=== PATIENT | female | born 1950 | race Caucasian/White ===

== ENCOUNTER 2025-08-03 08:04 | Observation (INO) ==
--- NOTE | 2025-08-02 08:46 | History & Physical Report ---
Date of Service August 02, 2025 Assessment & Plan (1) Occlusion of left iliac artery: Plan: Patient is admitted for arteriography with possible intervention. I have discussed the risks options and benefits of the procedure with the patient. The patient understands the risks options and benefits and agrees to the procedure. History of Present Illness Chief Complaint: Left iliac artery occlusion Primary Care Provider: Florence De Leon MD I had the pleasure of seeing Kari today for follow-up. As you may remember, patient underwent an aortogram with left iliac artery FORMSTONE FITTER and stenting in January 2025 due to severe left lower extremity claudication symptoms. Patient states that she did well for some time after treatment, but eventually ended up with the same symptoms that she had been experiencing prior to her procedure. She states at this point her left hip and buttock and thigh becomes severely painful after walking 20 to 30 yards. She states that this has been very bothersome this summer as they recently went to [place]. She states that she had a significant amount of trouble getting around the park. She is able to walk again after resting for about 5 minutes. She has no rest pain, nonhealing wounds or ulcers, discoloration of the feet or toes, numbness or tingling of the feet. She underwent her CT angiography which showed the left iliac stent to be occluded. She also has mild stenosis of the right common iliac artery. She does have significant claudication of the left lower extremity. Allergies Allergy/AdvReac Type Severity Reaction Status Date / Time No Known Allergies Allergy Mild OTHER Verified 07/10/25 11:02 Home Medications Medication Instructions Recorded Confirmed Type Ventolin HFA 90 mcg/actuation 2 puff inhalation .COMPLEX PRN 10/18/24 07/10/25 Rx aerosol inhaler (albuterol sulfate) shortness of breath or wheezing #18 grams albuterol sulfate 2.5 mg/3 mL 2.5 mg (3 mL) inhalation Q4H PRN 10/20/24 07/10/25 Rx (0.083 %) solution for nebulization shortness of breath or wheezing #75 mL aspirin 81 mg tablet,delayed 81 mg PO DAILY 01/03/25 07/10/25 History release clopidogrel 75 mg tablet (Plavix) 75 mg PO DAILY #30 tabs 02/16/25 07/10/25 Rx peg 3350-sod sulf,[id number] See Rx Instructions PO .COMPLEX #2 03/30/25 07/10/25 Rx 178.7-7.3-0.5-1.12-0.9 gram oral mL soln (Suflave) atorvastatin 40 mg tablet 40 mg PO QAM #90 tabs 06/12/25 07/10/25 Rx pantoprazole 40 mg tablet,delayed 40 mg PO BID #60 tabs 07/16/25 Rx release Past Med/Surg History Problem List (Updated 08/02/25 @ 08:45 by Nick Corado MD) Occlusion of left iliac artery Sciatica, left side Hyperlipidemia History of hip surgery Operation Date: 11/04/23 08:15 Actual Procedures p Left Hip: Revision Endoscopic Bursectomy, Open Gluteus Medius Repair, Bioinductive Scaffold(Left) - Blu Samuel MD Greater trochanteric pain syndrome of left lower extremity Lumbar radiculopathy Spondylolisthesis at L5-S1 level Tear of gluteus medius tendon Greater trochanteric bursitis of left hip Subacromial impingement of right shoulder Asthma (Chronic) Medical History COPD (chronic obstructive pulmonary disease) mild. Smoker History of COVID-19 January or march 2022, no symptoms Asthma well controlled, inh prn , last use summer 2022. Surgical History History of hip surgery left, Oct 01 2022. History of cataract surgery bilat History of colonoscopy History of kidney surgery Nephrophexy for floating kidney S/P foot surgery bilat H/O section x1 Family History Mother Colon cancer Colorectal cancer Father Lung cancer Denies family history of Ovarian cancer Prostate cancer Bipolar disorder Myocardial infarction Breast cancer Social History Smoking Status: Former smoker Tobacco Type: Cigarettes Age Started Using Tobacco: 17; Age Quit Using Tobacco: 74; packs per day: 0.5; Cigarettes Per Day: 10-12 cigs per day; Second Hand Exposure: No; Do You Dip or Chew Tobacco: No; Hx Alcohol Use: Yes Alcohol type: beer Alcohol Intake Frequency: 2-4 x/Month Hx Substance Use: No Preferred Language: French Communication Ability: Effective Visual Impairment: No Limitations Hearing Ability: Normal Tube Splicer Required: No Beliefs That Will Affect Care: None marital status: Current Living Situation: Spouse current occupational status: retired 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 She is alert and oriented without focal deficits. Her heart is regular, her lungs are decreased but clear. Her abdomen is soft and with mild tenderness across the upper portion of her abdomen. Her left femoral pulse is nonpalpable. Her right is +3. Her lower extremity distal pulses are +2 on the right, and +1 DP on the left nonpalpable PT on the left. She has brisk capillary fill and no sign of distal ischemia. There is no edema
[2025-08-03] MEDS: SODIUM CHLORIDE 0.9% 1,000 ML IV SCH ×2 (08:20→18:03)
[2025-08-03 08:36] LABS: Blood Urea Nitrogen 18.0 mg/dl (6-23); Creatinine Clr Calc Pharmacy 37.7 ml/min
--- NOTE | 2025-08-03 09:03 | History & Physical Bridge Note ---
Date of Service August 03, 2025 History & Physical Bridge Note I have examined the patient, reviewed the History & Physical and in the interval since the performance of the History & Physical I have noted the following changes of clinical significance: no changes noted
[2025-08-03] MEDS: CEFAZOLIN 2,000 MG/15 ML SYR IV SCH (09:48)
--- NOTE | 2025-08-03 10:19 | Pre Anesthesia Assessment ---
Date of Service August 03, 2025 Pre Sedation Assessment Vital Signs Temp Pulse Pulse Resp BP Pulse Ox O2 Del Method 08/03/25 10:08 48 L 16 146/57 H 100 Oxymask 08/03/25 08:33 Room Air 08/03/25 08:33 36.7 C 52 L 20 128/67 99 Room Air O2 Flow Rate 08/03/25 10:08 4 08/03/25 08:33 08/03/25 08:33 Cardiovascular RRR, no murmur, no edema Respiratory normal respiratory effort, lungs clear to auscultation Pre-Sedation Airway Assessment Smoking Status: Former smoker Hx Sleep Apnea: No Short, Thick Neck: No Thyromental Distance: < 3.5 Finger Breadths Oral Cavity: + WNL Mallampati Class: III ASA: ASA3 NPO Status Date of Last Intake of Fluids: 08/02/25 Time of Last Intake of Fluids: 23:00 Date of Last Intake of Solid Food: 08/02/25 Time of Last Intake of Solid Foods: 23:00 Procedure Planning Contraindications for Sedation: none Current Medications Reviewed: Yes Notes The planned sedation has been discussed with the patient. Informed Consent was obtained. I have identified the patient, determined the appropriateness of sedation and have assessed the patient immediately prior to the procedure. All medicine(s) and interventions are by my order.
[2025-08-03] MEDS: MIDAZOLAM HCL 1 MG/ML 2ML VIAL ONE ×2 (10:20→11:25)
[2025-08-03] MEDS: LIDOCAINE 1% LOCAL 20 ML VIAL ONE (11:25)
[2025-08-03] MEDS: VISIPAQUE IV PRN (11:26)
--- NOTE | 2025-08-03 11:37 | Procedure Note ---
Angiogram Post Procedure Fluoroscopy Time (minutes): 17.7 Conscious Sedation Time (minutes): 87 Radiation (mGy): 310 Contrast: 120 Post Operative Report Pre & Post Diagnosis Operation Date: 08/03/25 10:20 Pre-Op Diagnosis: Aortoiliac Occlusive Disease Post-Op Diagnosis: Aortoiliac Occlusive Disease I identified the patient and participated in the time-out.: Yes Procedure Operation Date: 08/03/25 10:20 Actual Procedures p Aortogram, Percutaneous Transluminal Angioplasty with Stenting of the Right Common Iliac Artery, Left Common Iliac Artery and Left External Iliac; Moderate Sedation [id number](Left) - Nick Corado MD Surgeon Nick Corado MD Structural Steel Fitter none Estimated Blood Loss 20 Findings Consistent with Post-Op Diagnosis Specimens none Complications none Disposition Accompanied Patient To Recovery: No Disposition: Recovery Room Indications This is a 75-year-old female who had a left common iliac stenting done in January of this year. Subsequent to that she has developed recurrent claudication. She was seen in the office for follow-up and found to have an occluded left common and external iliac artery. Arteriography with possible invention was recommended. I have discussed the risks options and benefits of the procedure with the patient. The patient understands the risks options and benefits and agrees to the procedure. Description of Procedure Patient was taken to the angiogram suite and placed supine position. After the groins were prepped and draped in a sterile manner patient was identified a timeout was performed. The right common iliac artery was identified using ultrasound. Local anesthetic was then administered. Using ultrasound the right common femoral artery was punctured. 5 Israeli sheath was inserted. 035 wire was passed up into the aorta followed by a pigtail. Aortography was performed which showed a stenosis in the right common iliac artery just beyond its origin and an occluded left common and external iliac artery with reconstitution of the common femoral artery right at 4 slightly above the inguinal ligament. At that point we exchanged the pigtail catheter to a rim catheter. Using a rim catheter we were able to cannulate the occluded stent down to the distal end. We then exchanged the wire to stiff and Glidewire and inserted a 6 Israeli destination which passed into the proximal portion of the old stent. Using a 035 wire and a quick cross we then were able to pass through the external iliac into the common femoral artery. The wire was removed and position was confirmed that the quick cross was true lumen of the common femoral artery. We then reinserted a 035 stiff and a wire. We then used a 6 x 120 balloon to dilate the external iliac artery. When the balloon was removed we did injected contrast which showed extravasation of contrast in the distal third of the external iliac artery. We then exchanged the destination to a 7 Israeli sheath and exchanged the 035 wire to an 018 wire. We then inserted an 8 x 5 Viabahn and deployed it from the inguinal ligament upward. We then deployed an 8 x 2.5 Viabahn just above and the proximal external iliac just below the level of the old stent. Angiogram done at that time showed no further extravasation. We then exchanged the wire for an 035 wire and exchanged to a 7 Israeli destination to an 8 Israeli destination. We then placed an 8 x 59 VBX in the old stent landing slightly higher on the common iliac artery origin. Angiogram done at that time showed good flow and no extravasation. There was no abnormalities questionable plaque in the common femoral artery proximally. We then inserted a 5 x 40 balloon and inflated the balloon at that area and held inflation for 2 minutes. After balloon was removed intact showed no further flap noted. We then pulled our sheath back to the right side. We used an 8 x 39 VBX stent deployed in the common iliac artery just beyond its origin. There is no residual stenosis noted at that time however at the proximal portion had a significant narrowing and appeared to be slightly kinked due to the presence of the stent in the opposite iliac. We therefore put an 8 x 29 VBX and deployed it right to the origin of the iliac on the right side. Hand-injection was then performed which showed widely patent common iliac arteries and external iliac arteries on both sides and good flow into both common femoral arteries. No extravasation of contrast was noted at that time. The destination sheath was then pulled and pressure was applied. Sterile dressings were applied to the wound.The patient left the operation room in satisfactory condition and tolerated the procedure well. All needle and sponge counts were correct at the end of the procedure. I attest to the content of the Intraoperative Record and any orders documented therein. Any exceptions are noted below.
--- NOTE | 2025-08-03 11:49 | Post Anesthesia Assessment ---
Date of Service August 03, 2025 Post Sedation Assessment Vital Signs Temp Pulse Pulse Resp BP Pulse Ox O2 Del Method 08/03/25 11:42 49 L 16 137/73 98 Room Air 08/03/25 11:37 55 L 16 110/62 95 Room Air 08/03/25 11:35 52 L 16 88/66 L 95 Oxymask 08/03/25 11:30 55 L 16 133/76 97 Oxymask 08/03/25 11:25 63 16 125/71 99 Oxymask 08/03/25 11:20 59 L 16 129/77 100 Oxymask 08/03/25 11:15 60 16 129/79 98 Oxymask 08/03/25 11:10 58 L 16 139/78 98 Oxymask 08/03/25 11:05 69 16 107/72 98 Oxymask 08/03/25 11:00 70 16 127/77 98 Oxymask 08/03/25 10:55 77 16 120/76 99 Oxymask 08/03/25 10:50 77 16 88/66 L 99 Oxymask 08/03/25 10:45 82 16 120/92 99 Oxymask 08/03/25 10:40 58 L 16 124/66 97 Oxymask 08/03/25 10:35 62 16 118/68 95 Oxymask 08/03/25 10:30 61 16 98/59 L 98 Oxymask 08/03/25 10:25 57 L 16 120/65 99 Oxymask 08/03/25 10:20 56 L 16 132/69 99 Oxymask 08/03/25 10:08 48 L 16 146/57 H 100 Oxymask 08/03/25 08:33 Room Air 08/03/25 08:33 36.7 C 52 L 20 128/67 99 Room Air O2 Flow Rate 08/03/25 11:42 0 08/03/25 11:37 0 08/03/25 11:35 4 08/03/25 11:30 4 08/03/25 11:25 4 08/03/25 11:20 4 08/03/25 11:15 4 08/03/25 11:10 4 08/03/25 11:05 4 08/03/25 11:00 4 08/03/25 10:55 4 08/03/25 10:50 4 08/03/25 10:45 4 08/03/25 10:40 4 08/03/25 10:35 4 08/03/25 10:30 4 08/03/25 10:25 4 08/03/25 10:20 4 08/03/25 10:08 4 08/03/25 08:33 08/03/25 08:33 Recovery Score Activity: Moves 4 extremities Respiration: Deep Breath/Cough Circulation: +/-20% PreAnes Value Consciousness: Fully Awake Oxygen Saturation: > 92% On Room Air Post Anesthesia Score: 10 Discharge Sedation Level of Care: Fast Track Phase II Post Sedation Plan On clinical assessment, the patient appears to have tolerated the sedation without complications. Patient is recovering as anticipated. Patient will continue to be monitored by nursing and may be discharged when sedation discharge criteria are met per below protocol. Upon Completions of procedure up to 15 minutes continue every 5 minute vital signs and the P.A.R. score; then discharge to a Phase I or Fast Track to Phase II per the following guidelines: * Discharge Patient to appropriate Phase II area if PAR is 8 or greater or return to pre- procedure baseline. The post - procedure orders will be as directed. * If PAR score is less than 8 or not return to pre-procedure baseline then patient will follow Phase I monitoring till PAR is reached for Phase II. The Phase I may be done in procedure room or may call to secure a Phase I area. * If naloxone or flumazenil are used for reversal, hold in Phase I for continued monitoring from when last reversal dose was given for a minimum of 60 minutes or longer pending the nurse and/or physician discretion of patient condition before discharge to Phase II. Please call the Sedation Physician to re-evaluate and complete post-note for discharge to Phase II area. Do NOT discharge from procedure sedation or Phase 1 until post- sedation evaluation note is complete by procedure /sedation MD Sedation Discharge Instructions to be given to the patient at discharge to home.
[2025-08-03] MEDS: ONDANSETRON INJ 2 MG/ML 2 ML VIAL IV PRN (14:03)
[2025-08-03 14:41] LABS: Hematocrit (blood only) 30.6 % (37.0-47.0); Hemoglobin 10.5 g/dl (12.0-16.0)
[2025-08-03] MEDS ORDERED: ONDANSETRON INJ 2 MG/ML 2 ML VIAL IV PRN (14:49)
[2025-08-03] MEDS ORDERED: ALBUTEROL 0.083% NEBU SOLN 3 ML VIAL INH PRN (14:49)
[2025-08-03] MEDS ORDERED: ALBUTEROL HFA 8 GM INHALER INH PRN (14:49)
--- NOTE | 2025-08-03 14:53 | Communication Note ---
Date of Service: August 03, 2025 Patient had a rupture of her ext iliac artery and now has nausea and llq pain. Will admit for obs and serial hgb.
[2025-08-03] MEDS ORDERED: NON-FORMULARY MEDICATION (Peg 3350-Sod Sulf,Chlr-Pot-Mag [Suflave] 178.7-7.3-0.5 gram reco PO SCH (15:00)
[2025-08-03] MEDS: HEPARIN SOD (PORCINE) 1000 UNIT/ML ONE (18:02)
[2025-08-03] MEDS: SODIUM CHLORIDE 0.9% 500 ML IV SCH (18:02)
[2025-08-04] MEDS ORDERED: SODIUM CHLORIDE 0.9% 100 ML IV PRN (08:44)
[2025-08-04] MEDS: ATORVASTATIN 40 MG TAB PO SCH (11:16)
[2025-08-04] MEDS: CLOPIDOGREL BISULFATE 75 MG TAB PO SCH (11:16)
[2025-08-04] MEDS: ASPIRIN 81 MG ECTAB PO SCH (11:16)
[2025-08-05 07:34] VITALS: PULSE 70; RESP 15; TEMP 98.8; O2SAT 94
[2025-08-05 07:40] LABS: Hematocrit (blood only) 27.7 % (37.0-47.0); Hemoglobin 9.3 g/dl (12.0-16.0); Mean Corpuscular Hemoglobin 28.5 pg (25.0-34.0); Mean Corpuscular Volume 85.0 fL (80.0-100.0); Platelet Count 133 K/uL (130-400); RDW Standard Deviation 41.3 fL (36.4-46.3); Red Blood Count 3.26 M/uL (4.20-5.40); White Blood Count 8.02 K/ul (4.8-10.8)
--- NOTE | 2025-08-05 09:03 | Surgery Progress Note ---
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 She has good peripheral flow to both lower extremities. (2) Retroperitoneal hematoma: Plan: Patient had a rupture of her left external iliac artery at the time or airplane captain/stenting which was controlled with covered stents however she did have a significant amount of extravasation of blood from this into her retroperitoneum. (3) Acute blood loss anemia: Plan: this was from her ruptured external iliac artery. Required 2 units of blood. Hgb now stable. No further bleeding on exam or at the time of completion arteriography. Admission and Anticipated Discharge Date Admission Date: August 03, 2025 Subjective Patient doing well. Still with lower abdominal pain but improving and relieved with pain meds. Denies lightheadedness or dizziness. Physical Exam Constitutional: WD/WN, vitals as above Respiratory: normal respiratory effort; no respiratory distress Cardiovascular: Rate/Rhythm: regular rate Vessels: femoral pulses present and posterior tibial pulses present Extremities: normal capillary refill Gastrointestinal (Abdomen): Inspection/Auscultation: abdomen normal to inspection; abdomen not distended Percussion/Palpation: + abdomen tender (mild lower abdominal tenderness) and abdomen soft Neurologic: CN's II-XI intact bilaterally and moves all extremities Psychiatric: A+Ox3, euthymic affect Results & Data Vital Signs (Past 12 Hours) Vital Signs Temp Pulse Resp BP Pulse Ox O2 Del Method 08/05/25 07:33 37.1 C 70 15 112/58 L 94 Room Air 08/04/25 22:26 37.5 C 83 18 109/65 96 Room Air
--- NOTE | 2025-08-05 09:10 | Discharge Summary ---
Date of Service August 05, 2025 Admission HPI Per Admitting Provider I had the pleasure of seeing Kari today for follow-up. 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 Patient states that she did well for some time after treatment, but eventually ended up with the same symptoms that she had been experiencing prior to her procedure. She states at this point her left hip and buttock and thigh becomes severely painful after walking 20 to 30 yards. She states that this has been very bothersome this summer as they recently went to [place]. She states that she had a significant amount of trouble getting around the park. She is able to walk again after resting for about 5 minutes. She has no rest pain, nonhealing wounds or ulcers, discoloration of the feet or toes, numbness or tingling of the feet. She underwent her CT angiography which showed the left iliac stent to be occluded. She also has mild stenosis of the right common iliac artery. She does have significant claudication of the left lower extremity. Admission Exam Per Admitting Provider Constitutional: In general patient is a healthy-appearing rash toward the left elderly female no distress. She is alert and oriented without focal deficits. Her heart is regular, her lungs are decreased but clear. Her abdomen is soft and with mild tenderness across the upper portion of her abdomen. Her left femoral pulse is nonpalpable. Her right is +3. Her lower extremity distal pulses are +2 on the right, and +1 DP on the left nonpalpable PT on the left. She has brisk capillary fill and no sign of distal ischemia. 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 She is alert and oriented without focal deficits. Her heart is regular, her lungs are decreased but clear. Her abdomen is soft and with mild tenderness across the upper portion of her abdomen. Her left femoral pulse is nonpalpable. Her right is +3. Her lower extremity distal pulses are +2 on the right, and +1 DP on the left nonpalpable PT on the left. She has brisk capillary fill and no sign of distal ischemia. There is no edema Constitutional WD/WN, vitals as above [facility] Mallampati Class: III Respiratory normal respiratory effort, lungs clear to auscultation normal respiratory effort; no respiratory distress Cardiovascular RRR, no murmur, no edema Rate/Rhythm: regular rate Vessels: femoral pulses present and posterior tibial pulses present Extremities: normal capillary refill Gastrointestinal (Abdomen) Inspection/Auscultation: abdomen normal to inspection; abdomen not distended Percussion/Palpation: + abdomen tender (mild lower abdominal tenderness) and abdomen soft Neurologic CN's II-XI intact bilaterally and moves all extremities Psychiatric A+Ox3, euthymic affect Discharge Data Allergies Allergy/AdvReac Type Severity Reaction Status Date / Time famotidine Allergy Difficulty Verified 08/04/25 12:31 Breathing Procedures Performed Operation Date: 08/03/25 10:20 Actual Procedures p Left Arteriography with Iliac Intervention, Percutaneous Transluminal Angioplasty with Stenting of the Right Common Iliac Artery, Left Common Iliac Artery and Left External Iliac; Moderate Sedation 10:20 - 11:42(Left) - Nick Corado MD Ordered Studies 08/03/25 07:28 EV Angio Abdomen Aorta Routine US EV guide vascular access Routine Hospital Course (1) Occlusion of left iliac artery: 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 She has good peripheral flow to both lower extremities. (2) Retroperitoneal hematoma: Patient had a rupture of her left external iliac artery at the time or sailboat captain/stenting which was controlled with covered stents however she did have a significant amount of extravasation of blood from this into her retroperitoneum. (3) Acute blood loss anemia: this was from her ruptured external iliac artery. Required 2 units of blood. Hgb now stable. No further bleeding on exam or at the time of completion arteriography. 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 Medications: * Continue to take your medications as directed. If you have been given a prescription for Plavix, please fill it immediately and take as directed. Incision Care: * Your puncture site may have some bruising and minor swelling for about one week. * You will have a small dressing covering your puncture site. You may remove the dressing after 24 hours and shower. You may let the warm soapy water run over it, but be sure to dry the puncture site well and keep it dry. * DO NOT IMMERSE THE INCISION IN A TUB/POOL/etc. UNTIL HEALED. * Puncture sites should be kept covered with a band-aid until it begins to heal. Restrictions: * Depending on whether you leg or arm was punctured to access the arteries, you will be required to lay flat, hold your arm still, or both, for about 4 hours after the procedure to prevent bleeding. * Limit your activity for the first 48 hours. You may walk and go up and down steps. Avoid excessive bending or movement at the puncture site. Possible Complications: * Excessive Swelling - after blood flow is improved you may notice increased swelling in the lower legs. This is a normal response. This usually depends on the amount of blockages in the leg, how long they have been there prior to your procedure and how much blood flow was restored. Elevating your legs will help to improve this. Please notify our office ([phone]) if the swelling does not go away after lying in bed overnight. * Infection/Drainage/Bleeding - Drainage or bleeding from the puncture site should be minimal. If you have excessive bleeding or drainage, call our office ([phone]) right away. * Pain - You may experience some mild pain or soreness at your puncture site. If your pain does not improve, please contact our office ([phone]). Call your doctor and seek emergent treatment if you develop: * Temperature above 101 degrees * Any fever or chills * Any redness or purulent drainage from the puncture site * Any new dusky/blue colored toes or feet with coolness or sharp or aching pain. SKIN IRRITATION: * You may experience some redness and/or swelling in the area where radiation was administered. If any skin irritation occurs, please contact your family physician. FOLLOW UP VISIT: Keep any scheduled doctor appointments. Call [phone] to schedule a follow up appointment if one not already scheduled. Pending Studies at Discharge: No Stand-Alone Forms: [facility] Medications and DC Order Prescriptions: New oxycodone-acetaminophen [Percocet] 5-325 mg Tablet 2 tab PO Q4H PRN (Reason: pain) Qty: 30 0RF Ferretts 325 mg (106 mg iron) tablet 325 mg PO BID Qty: 30 0RF docusate sodium [Colace] 100 mg capsule 100 mg PO BID Qty: 30 0RF Continued albuterol sulfate 2.5 mg /3 mL (0.083 %) solution for nebulization 2.5 mg inhalation Q4H PRN (Reason: shortness of breath or wheezing) Qty: 75 1RF Suflave 178.7-7.3-0.5 gram recon soln See Rx Instructions PO .COMPLEX Qty: 2 0RF Rx Instructions: orally; orally; TAKE FIRST DOSE AT 6 PM AND SECOND DOSE 6 HOURS PRIOR TO PROCEDURE BIN: [id number] N: [facility] GROUP: [id number] albuterol sulfate [Ventolin HFA] 90 mcg/actuation HFA aerosol inhaler 2 puff inhalation .COMPLEX PRN (Reason: shortness of breath or wheezing) Qty: 18 3RF Rx Instructions: 2 puff inhalation q4-6 hrs PRN; aspirin 81 mg Tablet,Delayed Release (Dr/Ec) 81 mg PO DAILY clopidogrel [Plavix] 75 mg tablet 75 mg PO DAILY Qty: 30 3RF atorvastatin [Lipitor] 40 mg tablet 40 mg PO QAM Rx Instructions: TAKE 1 TABLET BY MOUTH EVERY MORNING pantoprazole [Protonix] 40 mg tablet,delayed release (DR/EC) 40 mg PO QAM Discharge Orders: Discharge Order (Routine); Ordered 08/05/25 Ordered By: Nick Corado Admission Data Admit Date/Time: 08/03/25 14:46 Attending Provider: Nick Corado Admit Provider: Nick Corado Primary Care Provider: Florence De Leon
[2025-08-05 09:20] VITALS: BP 116/59
== END 2025-08-05 09:43 | disposition home or self-care (01) ==
LOC: ASU 08:04 → 3W 08:04